=== PATIENT | male | born 1980 | race Caucasian/White ===

== ENCOUNTER 2016-03-30 08:39 | Emergency (ER) | payer SELFPAY ==
[~2016-03-30] VITALS: Ht 193 cm; Wt 96.6 kg
[~2016-03-30 08:39] MED LIST: IBUP-1007 PO
[2016-03-30 08:51] VITALS: BP 135/89
[2016-03-30] MEDS ORDERED: MECLIZINE HCL 12.5 MG TABLET. PO ONE (09:00)
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
== END 2016-03-30 09:49 | disposition home or self-care (01) ==
LOC: ER 08:39
DX: J45.909 Unspecified asthma, uncomplicated (principal); I10 Essential (primary) hypertension
CPT/HCPCS: 99282; J8597

== ENCOUNTER 2016-09-19 22:48 | Emergency (ER) | payer SELFPAY ==
[~2016-09-19] VITALS: Ht 193 cm; Wt 95.3 kg
[2016-09-19 23:05] VITALS: BP 123/76
[2016-09-19] MEDS ORDERED: TRAM-48 PO (23:39)
[2016-09-19] MEDS ORDERED: IBUP-1007 PO (23:39)
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
[2016-09-19] MEDS ORDERED: traMADol 50 MG TABLET PO ONE (23:45)
[2016-09-19] MEDS ORDERED: IBUPROFEN 600 MG TABLET. PO ONE (23:45)
== END 2016-09-20 00:11 | disposition home or self-care (01) ==
LOC: ER 22:48
DX: M25.512 Pain in left shoulder (principal); I10 Essential (primary) hypertension; J45.909 Unspecified asthma, uncomplicated
CPT/HCPCS: 99283

== ENCOUNTER 2017-02-24 07:44 | Emergency (ER) | payer SELFPAY | END 2017-02-24 08:40 | disposition home or self-care (01) | LOC: ER 07:44 | DX: S39.012A Strain of muscle, fascia and tendon of lower back, initial encounter (principal); G89.29 Other chronic pain; X58.XXXA Exposure to other specified factors, initial encounter; Y93.89 Activity, other specified; Y92.89 Other specified places as the place of occurrence of the external cause; Y99.8 Other external cause status | CPT/HCPCS: 99283 ==